=== PATIENT | female | born 1995 | race African-American/Black ===

== ENCOUNTER 2021-08-18 13:29 | Inpatient (IN) | payer OTHER ==
[~2021-08-18] VITALS: Ht 162.6 cm; Wt 67.1 kg
--- NOTE | ~2021-08-18 | EMS ---
[address] [address] EMS Patient Care Report Name: MARCELLUS HALE Room #: 170-4 ADM IN M.R.#: [id number] Admission: 08/18/21 Attend Phys: Obed Tony MD Discharge: Date of : [birth year] Report #: [id number] THIS REPORT FOR: //name// Report Transmitted: 08/19/2021 10:06 EMS Care Summary [place], [place]/[facility] Incident [id number] @ 08/18/2021 12:59 Incident Location [address] [place], [place] [id number] Patient MARCELLUS HALE Female, 26 Years 1995 Patient Address [address] [place], [place] [id number] Patient History Back Pain (Chronic), Patient Allergies No known allergies, Patient Medications Naproxen, Chief Complaint Panic attack Disposition Transported No Lights/[place] Reason Breathing Problem Transported To [facility] Narrative Dispatched to an apartment community in regards to a respiratory distress. On arrival, I saw patient laying supine in bed. Initial assessment revealed that [address] [address] EMS Patient Care Report Name: MARCELLUS HALE Room #: 170-4 ADM IN M.Barry.#: [id number] Admission: 08/18/21 Attend Phys: Obed Tony MD Discharge: Date of : [birth year] Report #: [id number] patient was GCS14 and did not appear to be in respiratory distress. Patient's chief complaint was ALOC/behavioral problems. Family stated that they had last seen patient around 8 am this morning normal. Mother also stated that she had returned from the doctors office and found the patient in her current condition in bed and called 911. Physical assessment revealed that patient was warm and diaphoretic with no obvious signs of injury. Patient was assisted to our cot outside the building, and was secured and lifted into the ambulance. treatment rendered was obtaining a complete set of baseline vital signs including a blood glucose reading, oral temperature, and established vascular access with a saline lock. Patient was transported to [facility] and radio report was given en route. Patient care was transferred on arrival. Initial Vitals @13:14P: 143,R: 28,BP: 118/70,Pain: 0/10,GCS: 14,Glucose: 110,CO: 5,SpO2: 100,Revised Trauma: 12, @13:11P: 108,R: 26,BP: 117/79,Pain: 4/10,GCS: 14,Temp: 98.4F,SpO2: 100,Revised Trauma: 12, Assessments @13:15MENTAL:Event Oriented,Person Oriented,Place Oriented,Time Oriented,SKIN:HEENT:LUNG SOUNDS:ABDOMEN:PELVIS//GI:EXTREMITIES:PULSE:NEURO:No Abnormalities, Impression Behavioral/psychiatric episode Procedures @13:15 ALS Assessment Response: UnchangedSucceeded @13:15 IV Therapy - Saline Lock 10cc (20 ga) Site: Antecubital-Left Response: UnchangedSucceeded Timeline 12:57,Call Received 12:57,Dispatch Notified 12:59,Dispatched 12:59,En Route 13:03,On Scene 13:04,At Patient 13:11,BP: 117/79 M,PULSE: 108,RR: 26 R,SPO2: 100 Ox,ETCO2: ,BG: ,PAIN: 4,GCS: 14, 13:14,BP: 118/70 M,PULSE: 143,RR: 28 R,SPO2: 100 Ox,ETCO2: ,B,PAIN: 0,GCS: 14, 13:15,ALS Assessment,Response: UnchangedSucceeded, 13:15,IV Therapy - Saline Lock 10cc 20 ga Site: Antecubital-Left,Response: UnchangedSucceeded, [facility] [address] [place] [address] EMS Patient Care Report Name: MARCELLUS HALE Room #: 170-4 ADM IN M.R.#: [id number] Admission: 08/18/21 Attend Phys: Obed Tony MD Discharge: Date of : [birth year] Report #: [id number] 13:19,Depart Scene 13:40,At Destination 13:42,Call Closed Disclaimer v1.1 Copyright 2020 [employer] This EMS Care Summary contains data elements from the applicable legal record (which may be displayed differently). It is designed to provide pertinent information for the following purposes: continuity of care, clinical quality, and state data reporting. The complete legal record is available to ED staff and administrators of the receiving hospital in [facility]'s Patient Tracker. All data is provided "as is."
[2021-08-18 13:30] VITALS: BP 134/71
[2021-08-18 14:27] LABS: ABSOLUTE NEUTROPHILS 7.2 thou/uL (1.4-8.2); BASOPHILS 0.6 % (0.0-2.0); EOSINOPHILS 0.5 % (0.0-3.0); HEMATOCRIT 40.6 % (37.0-47.0); HEMOGLOBIN 13.4 gm/dL (12.0-15.0); LYMPHOCYTES 5.1 % (24.0-44.0); MCH 29.7 pg (26.0-34.0); MCV 89.9 fL (80.0-100.0); MONOCYTES 16.5 % (1.0-8.0); PLATELET COUNT 254 thou/uL (150-400); POLYS 77.3 % (36.0-66.0); RBC 4.52 mil/uL (4.20-5.00); RDW 13.4 % (10.5-14.5); WBC 9.3 thou/uL (4.0-11.0)
[2021-08-18 14:28] LABS: URINE BILIRUBIN NEGATIVE (Negative); URINE BLOOD NEGATIVE (Negative); URINE CLARITY CLEAR; URINE COLOR YELLOW; URINE GLUCOSE-RANDOM* NEGATIVE (Negative); URINE KETONES 1+ (Negative); URINE LEUKOCYTES-REFLEX NEGATIVE (Negative); URINE NITRITE-REFLEX NEGATIVE (Negative); URINE PROTEIN (DIPSTICK) NEGATIVE (Negative); URINE UROBILINOGEN 0.2 E.U./dl (0.2-1.0)
[2021-08-18 14:31] LABS: ANION GAP 15 mmol/L (7-16); BUN 8 mg/dL (7-18); CALCIUM 9.4 mg/dL (8.5-10.1); CHLORIDE 101 mmol/L (98-107); CO2 20 mmol/L (21-32); CREATININE 1.1 mg/dL (0.6-1.0); GLUCOSE 97 mg/dL (74-106); POTASSIUM 3.6 mmol/L (3.5-5.1); SODIUM 136 mmol/L (136-145)
[2021-08-18 14:41] LABS: ALBUMIN 4.1 g/dL (3.4-5.0); SGOT 26 U/L (15-37); SGPT 25 U/L (14-59); TOTAL BILIRUBIN 0.4 mg/dL (0.2-1.0); TOTAL PROTEIN 8.1 g/dL (6.4-8.2)
[2021-08-18 15:32] LABS: AMP/METHAMP Negative (Negative); BARBITURATES Negative (Negative); BENZODIAZEPINES Negative (Negative); COCAINE Negative (Negative); METHADONE Negative (Negative); OPIATES Negative (Negative); PCP Negative (Negative)
[2021-08-19 07:57] LABS: HEMATOCRIT 31.2 % (37.0-47.0); MCH 30.5 pg (26.0-34.0); MCHC 34.1 g/dL (28.0-37.0); MCV 89.4 fL (80.0-100.0); RBC 3.49 mil/uL (4.20-5.00); RDW 13.7 % (10.5-14.5)
[2021-08-19 07:59] LABS: HEMOGLOBIN 10.6 gm/dL (12.0-15.0)
[2021-08-19 08:02] LABS: CREATININE 0.8 mg/dL (0.6-1.0); POTASSIUM 3.8 mmol/L (3.5-5.1)
--- NOTE | 2021-08-19 08:23 | EKG ---
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
[2021-08-19 13:01] VITALS: BP 113/62
--- NOTE | 2021-08-19 15:53 | NUR ---
INITIAL ASSESSMENT: SW reviewed chart and spoke with attending physician. Pt was admitted from home due to fever/headache. Pt did have positive COVID test. Pt has received a COVID vaccination. Pt is afebrile and on 2L of O2. ID consulted. Pt remains in the ER waiting for a bed assignment when available. SW placed call to listed phone number for pt: [phone]. Voice message left. Per chart, pt is alert/orientated. Pt lives at home. Pt does not have health insurance. [facility] to screen pt for [place]. SW is following to assist as needed with discharge planning.
[2021-08-19 22:00] VITALS: BP 120/69
[2021-08-20 05:33] VITALS: BP 99/53
[2021-08-20 07:38] LABS: HEMATOCRIT 36.2 % (37.0-47.0); HEMOGLOBIN 11.5 gm/dL (12.0-15.0); MCH 28.7 pg (26.0-34.0); MCHC 31.7 g/dL (28.0-37.0); MCV 90.6 fL (80.0-100.0); RBC 3.99 mil/uL (4.20-5.00); RDW 13.9 % (10.5-14.5); WBC 3.5 thou/uL (4.0-11.0)
[2021-08-20 07:58] LABS: ALBUMIN 3.2 g/dL (3.4-5.0); ANION GAP 7 mmol/L (7-16); BUN 6 mg/dL (7-18); CALCIUM 8.5 mg/dL (8.5-10.1); CHLORIDE 107 mmol/L (98-107); CO2 26 mmol/L (21-32); CREATININE 0.9 mg/dL (0.6-1.0); DIRECT BILIRUBIN < 0.1 mg/dL (<0.1-0.2); GLUCOSE 109 mg/dL (74-106); PHOSPHORUS 3.1 mg/dL (2.6-4.7); POTASSIUM 3.8 mmol/L (3.5-5.1); SGOT 27 U/L (15-37); SGPT 27 U/L (14-59); SODIUM 140 mmol/L (136-145); TOTAL BILIRUBIN 0.2 mg/dL (0.2-1.0); TOTAL PROTEIN 6.7 g/dL (6.4-8.2)
[2021-08-20 10:30] VITALS: BP 114/60
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
[2021-08-20] MEDS ORDERED: PREDNISONE 10 M10 M1 PO (12:55)
[2021-08-20] MEDS ORDERED: CEFDINIR300 MG PO (12:55)
[2021-08-20 13:41] VITALS: BP 114/60
--- NOTE | 2021-08-20 14:15 | NUR ---
DISCHARGE NOTE: SW reviewed chart and spoke with attending physician. Pt is medically stable for discharge home today. SW spoke with ER nurse. No discharge needs identified at this time. [facility] did screen pt for [place] application. Pt does not meet eligibility requirements. SW is available to assist should needs arise.
== END 2021-08-20 15:45 | disposition home or self-care (01) | DRG 177 ==
LOC: ER 13:29 → EROBS 18:29
PROVIDERS: Emergency Medicine; Specialist; ADMIT Hospitalist; ATTEND Hospitalist
PROC: XW033E5 Introduction of Remdesivir Anti-infective into Peripheral Vein, Percutaneous Approach, New Technology Group 5 (ICD-10-PCS; principal; 2021-08-19)
PROC: 009U3ZX Drainage of Spinal Canal, Percutaneous Approach, Diagnostic (ICD-10-PCS; 2021-08-19)
DX: U07.1 COVID-19 (principal); J12.82 Pneumonia due to coronavirus disease 2019; J96.01 Acute respiratory failure with hypoxia; G93.40 Encephalopathy, unspecified; F41.9 Anxiety disorder, unspecified; Z79.899 Other long term (current) drug therapy